=== PATIENT | female | born 1985 | race African-American/Black ===

== ENCOUNTER 2016-12-25 14:31 | Emergency (ER) | payer OTHER ==
[2016-12-25 14:48] VITALS: BP 120/78; PULSE 84; TEMP 98.2; BMI 33.3
[2016-12-25] MEDS ORDERED: IBUPROFEN 400 MG TABLET (FP) PO ONE ×2 (15:31→15:46)
[2016-12-25 15:43] LABS: URINE APPEARANCE CLEAR; URINE BILIRUBIN NEGATIVE (NEGATIVE); URINE BLOOD NEGATIVE (NEGATIVE); URINE COLOR LTYELLOW; URINE GLUCOSE (UA) NEGATIVE (NEGATIVE); URINE KETONE NEGATIVE (NEGATIVE); URINE LEUK ESTERASE NEGATIVE (NEGATIVE); URINE NITRITE NEGATIVE (NEGATIVE); URINE PROTEIN NEGATIVE (NEGATIVE); URINE UROBILINOGEN NEGATIVE mg/dL (0.2-1.0)
--- NOTE | 2016-12-25 15:44 | PDOC ---
History of Present Illness - General Chief Complaint: Headache Stated Complaint: PAIN Time Seen by Provider: 12/25/16 14:58 History Source: Patient - History of Present Illness Timing/Duration: reports: other (yesterday) Severity: Yes: moderate Associated Symptoms: reports: fever/chills. denies: nausea/vomiting Past History - Past Medical History Allergies/Adverse Reactions: Allergies Allergy/AdvReac Type Severity Reaction Status Date / Time Shellfish Allergy Severe TONGUE Verified 12/25/16 14:44 SWELLING Home Medications: Ambulatory Orders Famotidine [Pepcid] 20 mg PO BID 02/19/16 Vitamins (Sjr) - 1 tab PO DAILY 02/19/16 Ibuprofen [Motrin -] 600 mg PO TID #21 tablet 02/21/16 Ibuprofen [Motrin -] 800 mg PO Q6H #30 tablet 12/25/16 Asthma: No Cancer: No Cardiac Disorders: No Diabetes: No GI Disorders: (gallstones) HTN: No Seizures: No Thyroid Disease: No Other medical history: hpv - Psycho/Social/Smoking Cessation Hx Suicidal Ideation: No Smoking Status: No Smoking History: Never smoked Have you smoked in the past 12 months: No Number of Cigarettes Smoked Daily: 0 Hx Alcohol Use: No Drug/Substance Use Hx: No Hx Substance Use Treatment: No Review of Systems - Review of Systems Constitutional: Yes: Chills, Malaise HEENTM: No: Ear Pain, Throat Pain Respiratory: No: Cough, Shortness of Breath ABD/GI: No: Diarrhea, Nausea, Vomiting Neurological: Yes: Headache. No: Dizziness *Physical Exam - Vital Signs Last Vital Signs Temp Pulse Resp BP Pulse Ox 98.2 F 84 19 120/78 100 12/25/16 14:44 12/25/16 14:44 12/25/16 14:44 12/25/16 14:44 12/25/16 14:44 - Physical Exam General Appearance: Yes: Appropriately Dressed. No: Apparent Distress HEENT: positive: Normal ENT Inspection, Normal Voice. negative: Scleral Icterus (R), Scleral Icterus (L) Neck: positive: Supple Respiratory/Chest: positive: Lungs Clear, Normal Breath Sounds. negative: Respiratory Distress Cardiovascular: positive: Regular Rate, S1, S2 Gastrointestinal/Abdominal: positive: Soft. negative: Tender Musculoskeletal: negative: CVA Tenderness Integumentary: positive: Dry, Warm Neurologic: positive: Fully Oriented, Alert, Normal Mood/Affect Medical Decision Making - Medical Decision Making 12/25/16 15:33 31 yo F, no sig hx, p/w headache w/ body aches. Pt states yesterday she developed frontal headache that resolved on its own, but recurred today and was associated with body aches and chills. Denies neck stiffness, photophobia, sore throat or rash. No nausea, vomiting, diarrhea or dysuria. No sick contacts or recent travel See exam Viral syndrome Stable w/ unremarkable exam -pain control in ED -dc w/ supportive tx 12/25/16 15:46 12/25/16 16:26 Pt reports feeling better w/ motrin. Will dc w/ supportive treatment *DC/Admit/Observation/Transfer Diagnosis at time of Disposition: Viral syndrome - Discharge Dispostion Disposition: HOME Condition at time of disposition: Improved - Prescriptions Prescriptions: Ibuprofen [Motrin -] 800 mg PO Q6H #30 tablet - Referrals Referrals: Osman Garcia [Primary Care Provider] - - Patient Instructions Printed Discharge Instructions: DI for Viral Syndrome Additional Instructions: Rest, drink plenty of fluids and take motrin for pain as needed - Post Discharge Activity Work/School Note: Back to Work
== END 2016-12-25 16:45 | disposition home or self-care (01) ==
LOC: JERFT 14:31
DX: B34.9 Viral infection, unspecified (principal)
CPT/HCPCS: 81003; 84703; 99281-25

== ENCOUNTER 2018-07-29 03:45 | Inpatient (IN) | payer OTHER ==
[2018-07-29] MEDS ORDERED: AMPICILLIN SODIUM 2 GM VIAL ONE (04:54)
[2018-07-29] MEDS ORDERED: DEXTROSE 5%-LACTATED RINGERS 1,000 ML IV SCH (05:00)
--- NOTE | 2018-07-29 05:01 | HP ---
Past Medical History - Admission Chief Complaint: Uterine contractions History of Present Illness: 33yo @ 35.4wks by LMP c/w 6wk sono here with vaginal bleeding, contractions. No LOF. +FM. care at [facility]. 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: Alzheimer's, CVA, Dementia, Migraine, Multiple Sclerosis, Peripheral Neuropathy, Parkinson's, Seizure, Syncope, TIA, Vertigo, Other Cardiovascular: No: AFIB, Aneurysm, Aortic Insufficiency, Aortic Stenosis, CAD, CHF, Deep Vein Thrombosis, HTN, Hyperlipdemia, DC, Mitral Insufficiency, Mitral Stenosis, Murmur, Pulmonary Hypertension, Other Pulmonary: No: Asthma, Bronchitis, Cancer, COPD, O2 Dependent, Pneumonia, Previously Intubated, Pulmonary Embolus, Pulmonary Fibrosis, Sleep Apnea, Other Gastrointestinal: No: Ascites, Cancer, Constipation, Crohn's Disease, Diverticulitis, Diverticulosis, Esophageal Varices, Gastritis, GERD, GI Bleed, Hemorrhoids, Hiatal Hernia, Inflamatory Bowel Disease, Irritable Bowel Disease, Pancreatitis, Peptic Ulcer Disease, Ulcerative Colitis, Other ...: 7 ...Para: 4 ...Term: 4 ...: 0 ...Induced : 2 ...EDC by Dates: 08/29/18 ...EDC by Sono: 08/29/18 Heme/Onc: No: Anemia, B12 Deficiency, Bleeding Disorder, Cancer, Current Chemotherapy, Current Radiation Therapy, Hemochromatosis, Hypercoaguable State, Myeloproliferative Synd, Sickle Cell Disease, Sickle Cell Trait, Thrombocytopenia, Other - Past Surgical History Past Surgical History: Yes: None Hx Myomectomy: No Hx Transabdominal Cerclage: No - Smoking History Smoking history: Never smoked Have you smoked in the past 12 months: No Aproximately how many cigarettes per day: 0 - Alcohol/Substance Use Hx Alcohol Use: No History of Substance Use: reports: None - Social History History of Recent Travel: No Home Medications - Allergies Allergies/Adverse Reactions: Allergies Allergy/AdvReac Type Severity Reaction Status Date / Time Shellfish Allergy Severe TONGUE Verified 12/25/16 14:44 SWELLING - Home Medications Home Medications: Ambulatory Orders Vitamins (Sjr) - 1 tab PO DAILY 02/19/16 Review of Systems - Review of Systems Constitutional: denies: No Symptoms, Chills, Diaphoresis, Fever, Lethargy, Loss of Appetite, Malaise, Night Sweats, Unintentional Wgt. Loss, Weakness, Other Cardiovascular: denies: No Symptoms, Chest Pain, Edema, Palpitations, Shortness of Breath, Other Gastrointestinal: denies: No Symptoms, Abdominal Pain, Bloating, Constipation, Diarrhea, Dysphagia, Indigestion, Melena, Nausea, Rectal Bleeding, Vomiting, Vomiting Blood, Other Physical Exam - Maternity - Abdominal Exam/OB Number of Fetuses: Single Presentation: Vertex Contractions: Yes Regularity: Regular Intensity: Mod/Strong Monitor Mode: External Heart Rate Location: LUQ Category: II Accelerations: Non-Uniform Decelerations: Variable - Vaginal Exam/OB Vaginal Bleediing: Yes Speculum Exam: No Dilatation (cm): 6 Effacement (%): 100 Amniotic Membrane Status: Intact Presentation: Vertex/Position Station: -1 - Physical Exam Edema: No Problem List - Problems (1) Uterine contractions Code(s): [id number] - Assessment/Plan 33yo @ 35+wks here in labor Admit to L&D NPO, IVFs Amp for GBS unknown/PTL PNL available, Urine drug screen ordered Cat II tracing with intermittent late decelerations AROM'd clears given concern for tracing and vaginal bleeding Neonatology made aware Anticipate DANIEL Posadas MD
[2018-07-29 05:09] VITALS: BMI 34.1
[2018-07-29] MEDS ORDERED: OXYTOCIN 20 UNITS in 0.9% NS 20 UNIT/1,000 ML INFUS.BAG IV ONE ×2 (05:13→06:17)
[2018-07-29] MEDS ORDERED: LIDOCAINE HCL 1% PRESERVATIVE FREE - 30ML VIAL ONE (05:13)
[2018-07-29 05:19] LABS: BASO % 0.4 % (0-2.0); EOS % 0.8 % (0-4.5); HEMATOCRIT 36.4 % (32.4-45.2); HEMOGLOBIN 12.8 GM/dL (10.7-15.3); LYMPH % 37.1 % (8-40); MCH 30.8 pg (25.7-33.7); MCHC 35.2 g/dl (32.0-36.0); MEAN CELL VOLUME 87.5 fl (80-96); MEAN PLT VOLUME 8.6 fl (7.5-11.1); MONO % 8.8 % (3.8-10.2); NEUT % 52.9 % (42.8-82.8); PLATELET COUNT 264 K/MM3 (134-434); RBC 4.16 M/mm3 (3.60-5.2); RDW 13.2 % (11.6-15.6); WHITE BLOOD COUNT 9.3 K/mm3 (4.0-10.0)
[2018-07-29] MEDS ORDERED: METHYLERGONOVINE MALEATE 0.2 MG/1 ML AMP IM PRN (05:27)
[2018-07-29] MEDS ORDERED: BISACODYL 10 MG SUPP.RECT RC PRN (05:27)
[2018-07-29] MEDS ORDERED: WITCH HAZEL 50% (TUCKS) 40 PAD/JAR PAD TP PRN (05:27)
[2018-07-29] MEDS ORDERED: BENZOCAINE 28 GM HEMORRHOIDAL OINTMENT TP PRN (05:27)
[2018-07-29] MEDS ORDERED: BENZOCAINE 20% 57 GM BOTTLE TP PRN (05:27)
--- NOTE | 2018-07-29 05:27 | PN ---
Delivery - Delivery Vaginal Delivery: Spontaneous Type of Anesthesia: None Episiotomy/Laceration: None EBL (cc): 300 Delivery, Single - Stages of Labor Placenta: Yes: Spontaneous - Condition of Gender: Male Position: Right, OA - [place] Feeding Plan Initial Plan: Elected not to breastfeed exclusively throughout hospitalization Remarks - Remarks Remarks: of VMI from MATTHEW position over intact perineum. 35 weeks gestation. No anesthesia. Spontaneous delivery of anterior shoulder. placed on maternal abdomen. Infant vigorous. Cord clamped and cut immediately per Legal Practice Manager's recommendation. Apgars 9/9. Spontaneous delivery of intact placenta with 3VC. Fundus firm. Perineum inspected, no lacerations. EBL 300. Mother and baby doing well.
[2018-07-29] MEDS ORDERED: AMPICILLIN - 2 GM in SODIUM CHLORIDE 100 ML IVPB ONE (05:29)
[2018-07-29] MEDS ORDERED: OXYTOCIN 20 UNITS in 0.9% NS 20 UNIT/1,000 ML INFUS.BAG IV SCH (05:30)
[2018-07-29 05:38] LABS: ANION GAP 8 MMOL/L (8-16); BLOOD UREA NITROGEN 7 mg/dL (7-18); CALCIUM 8.3 mg/dL (8.5-10.1); CHLORIDE 108 mmol/L (98-107); CO2 20 mmol/L (21-32); CREATININE 0.6 mg/dL (0.55-1.3); GLUCOSE,RANDOM 110 mg/dL (74-106); POTASSIUM 3.8 mmol/L (3.5-5.1); SODIUM 136 mmol/L (136-145)
[2018-07-29 05:54] LABS: INR 0.98 (0.83-1.09); PROTHROMBIN TIME (PATIENT) 11.6 SEC (9.7-13.0)
[2018-07-29] MEDS: ACETAMINOPHEN 325 MG TABLET (FP) PO PRN ×4 (06:15→18:41)
[2018-07-29] MEDS: IBUPROFEN 600 MG TABLET (FP) PO PRN ×4 (06:15→18:41)
[2018-07-29] MEDS ORDERED: ACETAMINOPHEN 325 MG TABLET (FP) ONE (06:16)
[2018-07-29] MEDS ORDERED: IBUPROFEN 600 MG TABLET (FP) PO ONE (06:16)
[2018-07-29] MEDS: PRENATAL VITAMINS W/ FOLIC ACID TABLET (FP) PO SCH (09:21)
[2018-07-29 09:39] LABS: COCAINE, UR NEGATIVE ng/ml (CUTOFF=300); METHADONE, UR NEGATIVE ng/ml (CUTOFF=300); OPIATES, URI NEGATIVE ng/ml (CUTOFF=300); PHENCYCLIDINE,URINE NEGATIVE ng/ml (CUTOFF=25); URINE AMPHETAMINES NEGATIVE ng/ml (CUTOFF=500); URINE BARBITURATES NEGATIVE ng/ml (CUTOFF=200); URINE BENZODIAZEPINES NEGATIVE ng/ml (CUTOFF=200)
[2018-07-30 07:03] LABS: BASO % 0.3 % (0-2.0); EOS % 0.8 % (0-4.5); HEMATOCRIT 35.5 % (32.4-45.2); HEMOGLOBIN 12.4 GM/dL (10.7-15.3); LYMPH % 23.2 % (8-40); MCH 31.2 pg (25.7-33.7); MCHC 34.8 g/dl (32.0-36.0); MEAN CELL VOLUME 89.7 fl (80-96); MEAN PLT VOLUME 8.4 fl (7.5-11.1); MONO % 6.3 % (3.8-10.2); NEUT % 69.4 % (42.8-82.8); PLATELET COUNT 299 K/MM3 (134-434); RBC 3.96 M/mm3 (3.60-5.2); RDW 13.6 % (11.6-15.6); WHITE BLOOD COUNT 13.2 K/mm3 (4.0-10.0)
--- NOTE | 2018-07-30 07:44 | PN ---
Progress Note (short form) - Note Progress Note: ppd 1 doing well, no c/o , voids ok CBC, BMP 07/29/18 04:45 Last Vital Signs Temp Pulse Resp BP Pulse Ox 98 F 80 18 112/68 98 07/30/18 06:00 07/30/18 06:00 07/30/18 06:00 07/30/18 06:00 07/29/18 06:15 abdomen soft, uterus firm , non tender lochia mild no ca;lf tenderness plan ambulate , cbc
[2018-07-30] MEDS: ACETAMINOPHEN 325 MG TABLET (FP) PO PRN ×2 (08:31→16:13)
[2018-07-30] MEDS: IBUPROFEN 600 MG TABLET (FP) PO PRN ×2 (08:31→16:12)
[2018-07-30] MEDS: PRENATAL VITAMINS W/ FOLIC ACID TABLET (FP) PO SCH (09:38)
[2018-07-30] MEDS ORDERED: SENNOSIDES/DOCUSATE COMBO (SENNA PLUS) TABLET (UD) PO PRN (22:00)
[2018-07-31] MEDS: IBUPROFEN 600 MG TABLET (FP) PO PRN (03:22)
[2018-07-31] MEDS: ACETAMINOPHEN 325 MG TABLET (FP) PO PRN (03:22)
[2018-07-31 08:40] VITALS: BP 133/75; PULSE 79; TEMP 98.5
[2018-07-31] MEDS: PRENATAL VITAMINS W/ FOLIC ACID TABLET (FP) PO SCH (10:15)
== END 2018-07-31 11:30 | disposition home or self-care (01) | DRG 560 ==
LOC: JDEL 03:45 → JLDR 04:15 → J3W 07:25
PROVIDERS: ADMIT Obstetrics & Gynecology; ATTEND Obstetrics & Gynecology
PROC: 10E0XZZ Delivery of Products of Conception, External Approach (ICD-10-PCS; principal; 2018-07-29)
DX: O80 Encounter for full-term uncomplicated delivery (principal); Z3A.35 35 weeks gestation of pregnancy; Z37.0 Single live birth
CPT/HCPCS: 36415; 59409; 80048; 80307; 85025; 85610; 85730; 86593; 86850; 86900; 86901; 87389